=== PATIENT | female | born 1985 | race Caucasian/White ===

== ENCOUNTER 2017-04-08 15:02 | Emergency (ER) | payer MEDICAID ==
[~2017-04-08] VITALS: Ht 162.6 cm; Wt 90.8 kg
[2017-04-08 16:56] VITALS: BP 136/92
== END 2017-04-08 16:56 | disposition home or self-care (01) ==
LOC: ED 15:02
DX: K60.2 Anal fissure, unspecified (principal); K64.8 Other hemorrhoids